=== PATIENT | female | born 1980 | race Caucasian/White ===

== ENCOUNTER 2021-02-23 20:15 | Emergency (ER) | payer OTHER ==
[~2021-02-23 20:15] MED LIST: CERTAGEN1 EACH PO; LEVAQUIN500 MG PO; NORCO 5-325 TA1 EACH PO; VITAMIN D50000 UNIT PO
[2021-02-23 21:54] LABS: BASOPHIL 0.4 % (0-2); EOSINOPHIL 1.3 % (0-5); HCT 44.6 % (37.0-47.0); HGB 14.7 g/dl (12.5-16.0); LYMPHOCYTE 25.9 % (15-48); MCH 29.8 pg (25.0-31.0); MCV 90.5 fL (78.0-100.0); MONOCYTE 8.5 % (0-12); MPV 9.7 fL (6.0-9.5); NEUTROPHIL 63.4 % (41-80); NRBC 0; PLT 274 K/uL (150-400); RBC 4.93 M/uL (4.20-5.40); RDW 13.6 % (11.5-14.0); WBC 8.5 K/uL (4.0-10.5)
[2021-02-23 22:39] LABS: ALKALINE PHOSHATASE 75 U/L (46-116); ALT 37 U/L (14-59); AST 49 U/L (15-37); BILIRUBIN - TOTAL 0.6 mg/dL (0.2-1.0); BUN 6 mg/dL (7-18); BUN/CREAT RATIO (CALC) 11.1 RATIO; CHLORIDE 105 mmol/L (98-107); CO2 (BICARBONATE) 28 mmol/L (21-32); CREATININE 0.54 mg/dL (0.51-0.95); GLUCOSE 82 mg/dL (74-106); MAGNESIUM 2.2 mg/dL (1.8-2.4); PHOSPHORUS 4.1 mg/dL (2.6-4.7); POTASSIUM 3.9 mmol/L (3.5-5.1)
[2021-02-23 22:40] LABS: C-REACTIVE PROTEIN < 0.20 mg/dL (<=0.90)
== END 2021-02-24 11:05 | disposition left against medical advice (07) ==
LOC: FER 20:15
PROVIDERS: Emergency Medicine Emergency Medical Services
DX: G62.9 Polyneuropathy, unspecified (principal); K59.00 Constipation, unspecified; F17.210 Nicotine dependence, cigarettes, uncomplicated; Z88.1 Allergy status to other antibiotic agents; Z88.8 Allergy status to other drugs, medicaments and biological substances; Z53.8 Procedure and treatment not carried out for other reasons
CPT/HCPCS: 36415; 72100; 72148; 80053; 82607; 83036; 83735; 84100; 84443; 85025; 86140